=== PATIENT | female | born 1975 | race Caucasian/White ===

== ENCOUNTER 2020-12-20 15:35 | Emergency (ER) | payer OTHER ==
[~2020-12-20 15:35] MED LIST: AZITHROMYCIN250 MG PO; IBU600 MG PO; IBUPROFEN600 MG PO; MUCINEX D ER 61 EACH PO; OMNICEF 300 MG300 MG PO; TAMIFLU75 MG PO; TRINTELLIX PO; WELLBUTRIN SR150 M1 PO; ZOFRAN4 MG PO
== END 2020-12-20 17:20 | disposition home or self-care (01) ==
LOC: ER1 15:35
DX: S63.616A Unspecified sprain of right little finger, initial encounter (principal); W22.8XXA Striking against or struck by other objects, initial encounter
CPT/HCPCS: 73140; 99283

== ENCOUNTER → 2021-01-02 | Outpatient (CLI) | payer OTHER | LOC: KOH-I 08:06 | DX: S69.90XA Unspecified injury of unspecified wrist, hand and finger(s), initial encounter (principal); R60.9 Edema, unspecified | CPT/HCPCS: 73218 ==

== ENCOUNTER → 2022-03-12 | Outpatient (CLI) | payer OTHER ==
[~2022-03-12] MED LIST changes: +ALBUTEROL2.5 MG/3 M NEB; +ASPIRIN EC81 MG PO; +FUROSEMIDE20 MG PO; +MECLIZINE HCL25 MG PO; +VITAMIN C500 M4 PO; +VITAMIN D325 MC6 PO; +ZINC50 M1 PO
== END ==
LOC: US 13:51
DX: D44.0 Neoplasm of uncertain behavior of thyroid gland (principal); E04.2 Nontoxic multinodular goiter; Z80.9 Family history of malignant neoplasm, unspecified
CPT/HCPCS: 76536